=== PATIENT | female | born 1970 | race Caucasian/White ===

== ENCOUNTER 2019-01-13 05:42 | Inpatient (IN) | payer OTHER ==
[~2019-01-13] VITALS: Ht 162.6 cm; Wt 76.6 kg
[2019-01-13] VITALS (27 sets, daily range): BP systolic 105–138; BP diastolic 64–82; PULSE 54–86; RESP 17–27; Ht 162.6 cm; Wt 76.6 kg
--- NOTE | 2019-01-13 07:22 | PREAC ---
Date/Time of Note Date/Time of Note DATE: 01/13/19 TIME: 07:21 Anesthesia Eval and Record Evaluation Time Pre-Procedure Interview DATE: 01/13/19 TIME: 07:21 Age 48 Sex female NPO: 8 hrs Preoperative diagnosis fibroid uterus, menometrorrhagia, pelvic pain Planned procedure PHUC, BSO Past Medical History Past Medical History: Includes Cardio: Dyslipidemia Endo: Diabetes (pre dm) GI: Obesity Surgery & Anesthesia Issues No known issue Meds Anticoagulation: No Beta Nayeli within 24 hr: No Reason Beta Nayeli not given: Pt. not on B-Nayeli Meds reviewed: Yes Allergies Allergies Reviewed: Yes Labs/Studies Labs Reviewed: Reviewed by anesthesiologist test: Negative Studies: ECG (nl) Pre-procedure Exam Airway: Adequate mouth opening, Adequate thyromental dist Mallampati: Mallampati II Teeth: Normal Lung: Normal Heart: Normal ASA Physical Status ASA physical status: 2 Emergency: None Planned Anesthetic General/MAC: ETT Neuraxial: Spinal Planned Pain Management Sub-arachniod narcotics, Parenteral pain med Pre-operative Attestations Prior to commencing anesthesia and surgery, the patient was re-evaluated, there was verification of: *The patient's identity *The results of appropriate recent lab work and preoperative vital signs *The above evaluation not changing prior to induction *Anesthetic plan, risk benefits, alternative and complications discussed with patient/family; questions answered; patient/family understands, accepts and wishes to proceed. Sean Hawk M.D. January 13, 2019 07:22
[2019-01-13] MEDS ORDERED: GLYCOPYRROLATE 0.4 MG INJ ONE (07:27)
[2019-01-13] MEDS ORDERED: DEXAMETHASONE 4 MG/ML 5 ML INJ ONE (07:27)
[2019-01-13] MEDS ORDERED: PROPOFOL 20 ML ONE (07:27)
[2019-01-13] MEDS ORDERED: FENTAnyl 50 MCG/ML VIAL ONE (07:27)
[2019-01-13] MEDS ORDERED: NEOSTIGMINE 3 MG/3 ML SYRINGE ONE (07:27)
[2019-01-13] MEDS ORDERED: ROCURONIUM 50 MG INJ ONE (07:27)
[2019-01-13] MEDS ORDERED: ONDANSETRON 4 MG INJ ONE (07:27)
[2019-01-13] MEDS ORDERED: CEFAZOLIN 1 GM INJ ONE (07:27)
[2019-01-13] MEDS ORDERED: MIDAZOLAM 1 MG/ML 2 ML INJ ONE (07:27)
--- NOTE | 2019-01-13 07:27 | HP ---
Date/Time of Note Date/Time of Note DATE: 01/13/19 TIME: 07:21 Assessment/Plan VTE Prophylaxis SCD applied (from Nsg): Yes Pharmacological prophylaxis: LMWH Lines/Catheters IV Catheter Type (from Nrsg): Peripheral IV Central line still needed: No Assessment/Plan Assessment/Plan Large Fibroid uterus Menometrorrhagia Pelvic pain Plan: Exploratory Laparotomy, AUDELIA-BSO HPI/ROS Admit Date/Time Admit Date/Time January 13, 2019 at 05:42 Hx of Present Illness 48 YO G0 with 18 weeks size fibroid uterus and menorrhagia and pelvic pain and back pain desires to have definitive surgery with hysterectomy. options of removing or retaining the ovaries d/w patient. the risk of future ovarian cancer as well as the difficulty of surgical menopause d/w patient. she desires to re move her ovaries. Surgical risks including infection, bleeding, damage to other organs, blood transfusion d/w patient. Informed consent obtained. ROS Constitutional: no complaints, improved Eyes: no complaints ENT: no complaints Respiratory: no complaints Cardiovascular: no complaints Gastrointestinal: no complaints Genitourinary: no complaints Musculoskeletal: no complaints Skin: no complaints Neurologic: no complaints Endocrine: no complaints Lymphatic: no complaints Psychological: no complaints, nl mood/affect Immunologic: no complaints PMH/Family/Social Past Medical History Medical History: no pertinent history Past Surgical History Past Surgical Hx: other (LSC) Family History Significant Family History: no pertinent family hx Social History Alcohol Use: none Smoking Status: Never smoker Drug Use: none Exam/Review of Systems Exam Gastrointestinal: other (fibroid uterus is palpated below umbilicus) Genitourinary - Female: other (18 week size uterus) MAYCO NIETO MD January 13, 2019 07:26
[2019-01-13] MEDS ORDERED: morphine SULFATE/PF (10 MG/10 ML) INJ ONE (07:28)
[2019-01-13] MEDS ORDERED: FENTAnyl 50 MCG/ML VIAL IV PRN ×3 (07:30)
[2019-01-13] MEDS ORDERED: ONDANSETRON 4 MG INJ IV PRN ×3 (07:30→08:00)
[2019-01-13] MEDS ORDERED: MEPERIDINE 25 MG INJ IV PRN (07:30)
[2019-01-13] MEDS ORDERED: IPRATROPIUM (NEB) 0.5 MG/2.5 ML AMP HHN PRN (07:30)
[2019-01-13] MEDS ORDERED: MIDAZOLAM 1 MG/ML 2 ML INJ IV PRN (07:30)
[2019-01-13] MEDS ORDERED: hydrALAzine 20 MG INJ IV PRN (07:30)
[2019-01-13] MEDS ORDERED: ALBUTEROL 0.083% (NEB) 2.5 MG/3 ML AMP HHN PRN (07:30)
[2019-01-13] MEDS ORDERED: TRIMETHOBENZAMIDE 100 MG/ML VIAL IM PRN ×2 (07:30)
[2019-01-13] MEDS ORDERED: NALBUPHINE HCL (10 MG/1 ML) INJ IV PRN (07:30)
[2019-01-13] MEDS ORDERED: HYDROmorphONE 1 MG/5 ML IV SYRINGE IV PRN ×3 (07:30)
[2019-01-13] MEDS ORDERED: DESFLURANE 15 MIN ONE (07:30)
[2019-01-13] MEDS ORDERED: EPHEDrine 25 MG/5 ML SYG IV PRN (07:30)
[2019-01-13] MEDS ORDERED: LABETALOL HCL 20MG INJ IV PRN (07:30)
[2019-01-13] MEDS ORDERED: OXYCODONE/ACETAMINOPHEN (5/325) TAB PO PRN ×2 (07:30)
[2019-01-13] MEDS ORDERED: DIPHENHYDRAMINE 50 MG INJ IV PRN ×2 (07:30)
[2019-01-13] MEDS ORDERED: HYDROmorphONE 0.5 MG/0.5 ML SYG IV PRN ×2 (07:30)
[2019-01-13] MEDS ORDERED: KETOROLAC 30 MG INJ IV PRN ×2 (07:30→08:00)
[2019-01-13] MEDS ORDERED: NALOXONE (0.4 MG/ML) INJ IV PRN (07:30)
[2019-01-13] MEDS: CEFAZOLIN 1 GM/50 ML (PMX) 50 ML IVPB SCH ×3 (07:50→23:37)
[2019-01-13] MEDS ORDERED: metroNIDAZOLE 500 MG/NS (PMX) 100 ML IVPB SCH (08:00)
[2019-01-13] MEDS ORDERED: morphine 2 MG INJ IV PRN (08:00)
[2019-01-13] MEDS ORDERED: HYDROCODONE/APAP (5/325) TAB PO PRN (08:00)
[2019-01-13] MEDS ORDERED: METOCLOPRAMIDE 10 MG INJ IV PRN (08:00)
--- NOTE | 2019-01-13 09:20 | OPR ---
Date/Time of Note Date/Time of Note DATE: 01/13/19 TIME: 09:13 Operative Report Procedure Date: January 13, 2019 Preoperative Diagnosis Fibroid Uterus pelvic pain menometrorrhagia Postoperative Diagnosis same Operation/Procedure Performed Total Abdominal Hysterectomy Bilateral Salpingectomies Surgeon Mayco Hoffman MD Supervisor Belt And Link Assembly MS Ruth MD Anesthesia Type: general Anesthesiologist: Sean Hawk M.D. Estimated Blood Loss: 250 - 300 ml's Transfusion none Specimen uterus, ovaries, tubes Grafts/Implants none Tubes/Drains Hogan Cath Complications none Pt Condition Post Procedure: stable Disposition: PACU Procedure Description FINDINGS: Large fibroid uterus. endometriosis implants on uterus, normal ovaries and tubes INFORMED CONSENT: Please see my preop H and P for the consent process. The patient desires to remove her ovaries DESCRIPTION OF PROCEDURE: She was taken to the operating room. General anesthesia was induced. She was prepped and draped in the usual sterile fashion. Vaginal prep and abdominal prep was done. Hogan catheter was inserted. She was in the supine position. After she was prepped and draped, surgical time out was done, surgery and patient was identified. Then, we proceeded and made a Pfannenstiel skin incision. Incision was taken down in layers. The fascia was cut, undermined, from the underlying muscle using sharp and blunt dissection. All the bleeders were cauterized. We had to proceed with lysis of adhesions from the omentum to the anterior abdominal wall to get access to our surgical site, at all times protecting the bowel. We took down the adhesions and then an O'Milton-O'Muir retractor was placed, 3 moist laparotomy packs were used to pack the bowel away. Two large clamps were used to grab the uterus. The right round ligament was coagulated twice using the LigaSure and then cut. Same procedure on the contralateral side. Then, we proceeded with developing a bladder flap using a sharp and blunt dissection and bladder was pushed down. A window was developed in the broad ligament on the right side. Ureter was palpated to be away. IP pedicle on the right side was ligated using the LigaSure twice and then cut. There was no bleeding. Same procedure was done on contralateral side. Bladder flap was pushed further down and the right uterine artery pedicle was clamped, cut, suture ligated and the left side was clamped, cut, suture ligated. The bladder flap was pushed further down and the cardinal ligaments were clamped, cut, suture ligated using straight Grace clamps and the uterosacrals were clamped, cut, suture ligated. The vagina was entered using a knife and using Giulia scissors, the specimen was cut and sent to pathology. The vaginal apex on both sides was suture ligated and then interrupted sutures were used to place [id number] sutures to close the cuff. We had to proceed with separation of the right tube from the right ovary, and after we the ovary from the tube, the right fallopian tube was removed using the LigaSure and the left fallopian tube was removed using the LigaSure. We irrigated and then we filled the pelvis using warm water and there was absolutely no evidence of any bleeding from any our pedicles. Each pedicle was evaluated individually. The vaginal cuff was evaluated very carefully and there was no bleeding. At this time, the posterior peritoneum was closed using a 2-0 Vicryl and all laparotomy packs were removed. O'Milton-O'Muir removed. I explored the abdomen, there were no laparotomy packs left inside. The peritoneum was closed using 2-0 Vicryl. The rectus muscles reapproximated using 2-0 Vicryl. Rectus muscles, rectus fascia were evaluated, all bleeders cauterized. Rectus fascia was closed using #1 Vicryl. Subcutaneous tissue was cleaned, irrigated, all bleeders cauterized and closed using 3-0 plain and then the skin closed using Insorb. All counts were correct. The patient tolerated the procedure well. MAYCO HOFFMAN MD January 13, 2019 09:20
--- NOTE | 2019-01-13 09:20 | PAC ---
Date/Time of Note Date/Time of Note DATE: 01/13/19 TIME: 09:20 Post-Anesthesia Notes Post-Anesthesia Note Last documented vital signs hr 78 rr 14 bp 114/65 t 98.6 Activity: WNL Respiratory function: WNL Cardiovascular function: WNL Mental status: Baseline Pain reasonably controlled: Yes Hydration appropriate: Yes Nausea/Vomiting absent: Yes Sean Hawk M.D. January 13, 2019 09:20
[2019-01-13] MEDS: LACTATED RINGER'S 1,000 ML IV SCH ×3 (09:36→23:37)
[2019-01-14] VITALS: BP 105/59; PULSE 82; RESP 18
[2019-01-14] MEDS: LACTATED RINGER'S 1,000 ML IV SCH ×2 (03:30→15:01)
[2019-01-14 04:15] VITALS: BP 100/56; PULSE 80; RESP 18
[2019-01-14] MEDS: ENOXAPARIN 40 MG/0.4 ML SYG SC SCH (08:25)
[2019-01-14 08:30] VITALS: BP 131/72; PULSE 67; RESP 18
[2019-01-14 16:06] VITALS: BP 116/67; PULSE 68; RESP 18
[2019-01-14 19:15] VITALS: BP 141/74; PULSE 77; RESP 18
--- NOTE | 2019-01-14 20:31 | QN ---
Documentation Comment s/p c/s Subjective: c/o nausea no flatus Objective: Afebrile, VSS NAD A&O Abdomen: soft, appropriate tender Incision: no sign of bleeding/infection mild lochia Extremity: 1+ edema bilaterally Assessment: S/p AUDELIA BSO POD #1 Recovering Well Plan: current care MAYCO NIETO MD January 14, 2019 20:31
[2019-01-14] MEDS ORDERED: BISACODYL 10 MG SUPP PR PRN (22:30)
[2019-01-14] MEDS ORDERED: BISACODYL 30 ML ENEMA PR ONE (22:30)
[2019-01-14] MEDS ORDERED: BISACODYL (EC) 5 MG TAB PO PRN (22:30)
[2019-01-14] MEDS ORDERED: DOCUSATE SODIUM 100 MG CAP PO PRN (22:30)
[2019-01-14] MEDS ORDERED: MAGNESIUM HYDROXIDE 30ML CUP PO PRN (22:30)
[2019-01-15 02:05] VITALS: BP 134/70; PULSE 84; RESP 18
[2019-01-15] MEDS: LACTATED RINGER'S 1,000 ML IV SCH (03:08)
[2019-01-15 07:14] VITALS: BP 129/73; PULSE 82; RESP 18
--- NOTE | 2019-01-15 07:45 | DS ---
Date/Time of Note Date/Time of Note DATE: 01/15/19 TIME: 07:43 Discharge Summary Admission/Discharge Info Admit Date/Time January 13, 2019 at 05:42 Discharge Date/Time 01/15/2019 Discharge Diagnosis s/p AUDELIA BSO Patient Condition: Good Procedures AUDELIA BSO Hx of Present Illness 48 YO G0 with 18 weeks size fibroid uterus and menorrhagia and pelvic pain and back pain desires to have definitive surgery with hysterectomy. options of removing or retaining the ovaries d/w patient. the risk of future ovarian cancer as well as the difficulty of surgical menopause d/w patient. she desires to remove her ovaries. Surgical risks including infection, bleeding, damage to other organs, blood transfusion d/w patient. Informed consent obtained. Hospital Course s/p AUDELIA BSO. Post op she is tolerating regular diet, ambulating well, good pain control on oral meds, had BM. VSS, remained afebrile. feels comfortable and desires to go home. Home Meds No Active Prescriptions or Reported Meds Follow-up Plan [address] Hoffman Primary Care Provider Not On Staff Doctor Time spent on discharge: < 30 minutes MAYCO HOFFMAN MD January 15, 2019 07:45
[2019-01-15] MEDS: ENOXAPARIN 40 MG/0.4 ML SYG SC SCH (08:27)
== END 2019-01-15 10:55 | disposition home or self-care (01) | DRG 743 ==
LOC: REC 05:42 → MS1 10:56
PROVIDERS: ADMIT Specialist; ATTEND Specialist
PROC: 0UT20ZZ Resection of Bilateral Ovaries, Open Approach (ICD-10-PCS; 2019-01-13)
PROC: 0UT70ZZ Resection of Bilateral Fallopian Tubes, Open Approach (ICD-10-PCS; 2019-01-13)
PROC: 0UT90ZZ Resection of Uterus, Open Approach (ICD-10-PCS; principal; 2019-01-13 07:30)
DX: D25.9 Leiomyoma of uterus, unspecified (principal); N80.0 Endometriosis of uterus; N92.1 Excessive and frequent menstruation with irregular cycle; E78.5 Hyperlipidemia, unspecified; R10.2 Pelvic and perineal pain; R73.03 Prediabetes; E66.9 Obesity, unspecified; Z68.29 Body mass index [BMI] 29.0-29.9, adult
CPT/HCPCS: 80048; 85025; 88305; J0690; J1100; J1650; J2175; J2250; J2274; J2405; J2710; J3010; J7120

== ENCOUNTER 2019-02-04 19:22 | Emergency (ER) | payer OTHER ==
[~2019-02-04] VITALS: Ht 160 cm; Wt 74.7 kg
[2019-02-04 19:33] VITALS: Ht 160 cm; Wt 74.7 kg
--- NOTE | 2019-02-04 20:22 | ERD ---
ER Documentation Chief Complaint Chief Complaint kris lower leg pain x 1 week HPI 48-year-old female, status post hysterectomy with oophorectomy on 01/13/2019, presents the emergency department, complaining of progressive bilateral lower extremity edema and pain during the last week. The pain is dull, constant, 6/10. She denies palpitations, no shortness of breath, no history of previous episodes. ROS All systems reviewed and are negative except as per history of present illness. Medications Home Meds Active Scripts Ibuprofen* (Motrin*) 400 Mg Tab, 400 MG PO Q6H PRN for PAIN AND OR ELEVATED TEMP, #20 TAB Prov:ASA AVILA MD 02/04/19 Acetaminophen* (Tylenol*) 325 Mg Tablet, 2 TAB PO Q6 PRN for PAIN AND OR ELEVATED TEMP, #20 TAB Prov:ASA AVILA MD 02/04/19 Allergies Allergies: Coded Allergies: No Known Allergy (Unverified , 01/13/19) PMhx/Soc History of Surgery: Yes ("SURGERY TO HAVE A BABY") Anesthesia Reaction: No Hx Neurological Disorder: No Hx Respiratory Disorders: No Hx Cardiac Disorders: No Hx Psychiatric Problems: No Hx Miscellaneous Medical Probl: No Hx Alcohol Use: No Hx Substance Use: No Hx Tobacco Use: No FmHx Family History: No diabetes, No coronary disease Physical Exam Vitals Vital Signs Date Temp Pulse Resp B/P (MAP) Pulse Ox O2 O2 Flow FiO2 Time Delivery Rate 02/04/19 98.0 64 17 128/76 98 Room Air 23:03 (93) 02/04/19 98.1 71 20 130/60 98 19:33 (83) Physical Exam Const: No acute distress Head: Atraumatic Eyes: Normal Conjunctiva ENT: Normal External Ears, Nose and Mouth. Neck: Full range of motion. No meningismus. Resp: Clear to auscultation bilaterally Cardio: Regular rate and rhythm, no murmurs Abd: Soft, non tender, non distended. Normal bowel sounds Skin: No petechiae or rashes Back: No midline or flank tenderness Ext: No cyanosis, or edema Neur: Awake and alert Psych: Normal Mood and Affect Result Diagram: 02/04/19204702/04/192047 Results 24 hrs Laboratory Tests Test 02/04/19 20:48 White Blood Count 10.1 10^3/ul Red Blood Count 3.76 10^6/ul Hemoglobin 12.5 g/dl Hematocrit 37.1 % Mean Corpuscular Volume 98.7 fl Mean Corpuscular Hemoglobin 33.2 pg Mean Corpuscular Hemoglobin Concent 33.7 g/dl Red Cell Distribution Width 11.4 % Platelet Count 224 10^3/UL Mean Platelet Volume 11.4 fl Immature Granulocytes % 0.400 % Neutrophils % 58.5 % Lymphocytes % 31.9 % Monocytes % 7.1 % Eosinophils % 1.7 % Basophils % 0.4 % Nucleated Red Blood Cells % 0.0 /100WBC Immature Granulocytes # 0.040 10^3/ul Neutrophils # 5.9 10^3/ul Lymphocytes # 3.2 10^3/ul Monocytes # 0.7 10^3/ul Eosinophils # 0.2 10^3/ul Basophils # 0.0 10^3/ul Nucleated Red Blood Cells # 0.0 10^3/ul Prothrombin Time 12.4 Sec Prothrombin Time Ratio 1.0 INR International Normalized Ratio 0.91 Activated Partial Thromboplast Time 30.6 Sec Sodium Level 142 mmol/L Potassium Level 4.2 mmol/L Chloride Level 103 mmol/L Carbon Dioxide Level 30 mmol/L Anion Gap 9 Blood Urea Nitrogen 13 mg/dl Creatinine 0.70 mg/dl Est Glomerular Filtrat Rate mL/min > 60 mL/min Glucose Level 101 mg/dl Calcium Level 9.3 mg/dl Total Bilirubin 0.5 mg/dl Direct Bilirubin 0.00 mg/dl Indirect Bilirubin 0.5 mg/dl Aspartate Amino Transf (AST/SGOT) 26 IU/L Alanine Aminotransferase (ALT/SGPT) 24 IU/L Alkaline Phosphatase 94 IU/L Total Protein 7.7 g/dl Albumin 4.3 g/dl Globulin 3.40 g/dl Albumin/Globulin Ratio 1.26 Procedures/MDM Differential diagnosis include but not limited to: Musculoskeletal injury, arthritis, fracture, DVT; low suspicion for acute limb ischemia, septic arthritis, necrotizing fasciitis, compartment syndrome. Neurovascular exam grossly intact. no clinical findings suggestive of acute infectious process, no acute deformity, no edema, no rashes. Pertinent Data: Venous Doppler: Negative for DVT Physical examination and clinical presentation consistent most likely with musculoskeletal leg pain. Results and clinical impression discussed with the patient who agrees with management. The patient is stable to be treated outpatient and will be discharged home with recommendations for ice, rest and NSAIDs 3 times daily for 5 days and close monitoring. The patient was instructed to follow up with the primary care provider in the next 48h. If symptoms persist, worsen or new symptoms develop, then patient should return to the ED immediately. Instructions explained and given to patient with acknowledgment and demonstrated understanding. Disclaimer: Inadvertent spelling and grammatical errors are likely due to EHR/dictation software use and do not reflect on the overall quality of patient care. Also, please note that the electronic time recorded on this note does not necessarily reflect the actual time of the patient encounter. Departure Diagnosis: Primary Impression: Bilateral leg pain Condition: Stable Additional Instructions: Muchas patricio por [facility] para franco servicio. Esperamos que en franco visita a la elise de emergencia franco problema medico haya sido solucionado y que se sienta mucho mejor. Para estar seguros que franco mejoria sigue en proceso, le pedimos el favor de hacer renzo irving de seguimiento medico con franco doctor primario en los proximos 2-4 reich. Lleve con usted estos documentos y las medicinas recetadas. Si parviz sintomas empeoran, NO SE ESPERE, por favor regrese a elise de emergencia INMEDIATAMENTE. En raquel que usted no tenga un mdico de atencin primaria: Llame al mdico o clnica comunitaria de referencia que aparece abajo evi las horas de consultorio para hacer renzo irving para que le vean. CLINICAS: [facility] [phone] [address] [facility] [phone] [address] [facility] [phone] [address] [facility] [phone] [address] [facility] [phone] [facility]. [phone] ASA JOSHUA MD Feb 04, 2019 20:22
[2019-02-04] MEDS ORDERED: IBUP-1561 PO (22:44)
[2019-02-04] MEDS ORDERED: ACET325T33 PO (22:44)
[2019-02-04 23:03] VITALS: BP 128/76; PULSE 64; RESP 17
== END 2019-02-04 23:03 | disposition home or self-care (01) ==
LOC: FTE 19:22
DX: M79.661 Pain in right lower leg (principal); M79.662 Pain in left lower leg
CPT/HCPCS: 80053; 85025; 85610; 85730; 93970; Z7502

== ENCOUNTER 2019-04-04 12:57 | Emergency (ER) | payer OTHER ==
[~2019-04-04] VITALS: Ht 162.6 cm; Wt 65.9 kg
[~2019-04-04 12:57] MED LIST: ACET325T33 PO; ACET500C5 PO; IBUP-1561 PO; MECL-77 PO; ONDA8TAB14 PO
[2019-04-04 13:17] VITALS: BP 120/75; PULSE 75; RESP 18; Ht 162.6 cm; Wt 65.9 kg
[2019-04-04] MEDS ORDERED: SOD CHLORIDE 0.9% 1,000 ML IV STA (14:19)
[2019-04-04] MEDS ORDERED: ONDANSETRON 4 MG INJ IV STA (14:19)
[2019-04-04] MEDS ORDERED: ACETAMINOPHEN 500 MG TAB PO STA (14:19)
--- NOTE | 2019-04-04 16:15 | ERD ---
ER Documentation Chief Complaint Chief Complaint dizziness with nausea x 9 days HPI 48-year-old female presents with nonspecific dizziness and nausea for last 9 days. It is a spinning type dizziness and she has unsteady gait. She also has left-sided headache. She denies vomiting. Denies chest pain or shortness of breath, abdominal pain, deficits. She denies fevers, visual changes. ROS All systems reviewed and are negative except as per history of present illness. Medications Home Meds Active Scripts Meclizine Hcl* (Meclizine Hcl*) 25 Mg Tablet, 25 MG PO Q8H PRN for DIZZINESS, #15 TAB Prov:ZACK ORTIZ MD 04/04/19 Ondansetron (Ondansetron Odt) 8 Mg Tab.rapdis, 8 MG PO Q6H PRN for NAUSEA AND/OR VOMITING, #8 TAB Prov:ZACK ORTIZ MD 04/04/19 Acetaminophen* (Tylophen*) 500 Mg Capsule, 1 CAP PO Q6H PRN for PAIN AND OR ELEVATED TEMP, #15 CAP Prov:ZACK ORTIZ MD 04/04/19 Ibuprofen* (Motrin*) 400 Mg Tab, 400 MG PO Q6H PRN for PAIN AND OR ELEVATED TEMP, #20 TAB Prov:ASA AVILA MD 02/04/19 Acetaminophen* (Tylenol*) 325 Mg Tablet, 2 TAB PO Q6 PRN for PAIN AND OR ELEVATED TEMP, #20 TAB Prov:ASA AVILA MD 02/04/19 Allergies Allergies: Coded Allergies: No Known Allergy (Unverified , 01/13/19) PMhx/Soc History of Surgery: Yes (Csection) Anesthesia Reaction: No Hx Neurological Disorder: No Hx Respiratory Disorders: No Hx Cardiac Disorders: No Hx Psychiatric Problems: No Hx Miscellaneous Medical Probl: No Hx Alcohol Use: No Hx Substance Use: No Hx Tobacco Use: No Smoking Status: Never smoker FmHx Family History: No diabetes, No coronary disease, No other Physical Exam Vitals Vital Signs Date Temp Pulse Resp B/P (MAP) Pulse Ox O2 O2 Flow FiO2 Time Delivery Rate 04/04/19 98.6 75 18 120/75 98 13:17 (90) Physical Exam Const: No acute distress Head: Atraumatic Eyes: Normal Conjunctiva ENT: Normal External Ears, Nose and Mouth. Neck: Full range of motion. No meningismus. Resp: Clear to auscultation bilaterally Cardio: Regular rate and rhythm, no murmurs Abd: Soft, non tender, non distended. Normal bowel sounds Skin: No petechiae or rashes Back: No midline or flank tenderness Ext: No cyanosis, or edema Neur: Awake and alert. Mildly reproducible dizziness bilaterally. Negative cover uncover test. Ambulatory with out deficits. Psych: Normal Mood and Affect Result Diagram: 04/04/19 1435 04/04/19 1435 Results 24 hrs Laboratory Tests Test 04/04/19 14:34 04/04/19 14:35 Urine Test NEGATIVE White Blood Count 9.4 10^3/ul Red Blood Count 4.10 10^6/ul Hemoglobin 13.6 g/dl Hematocrit 40.2 % Mean Corpuscular Volume 98.0 fl Mean Corpuscular Hemoglobin 33.2 pg Mean Corpuscular Hemoglobin Concent 33.8 g/dl Red Cell Distribution Width 11.8 % Platelet Count 193 10^3/UL Mean Platelet Volume 11.8 fl Immature Granulocytes % 0.300 % Neutrophils % 62.7 % Lymphocytes % 28.8 % Monocytes % 7.1 % Eosinophils % 0.7 % Basophils % 0.4 % Nucleated Red Blood Cells % 0.0 /100WBC Immature Granulocytes # 0.030 10^3/ul Neutrophils # 5.9 10^3/ul Lymphocytes # 2.7 10^3/ul Monocytes # 0.7 10^3/ul Eosinophils # 0.1 10^3/ul Basophils # 0.0 10^3/ul Nucleated Red Blood Cells # 0.0 10^3/ul Urine Color YELLOW Urine Clarity CLOUDY Urine pH 7.0 Urine Specific [place] 1.004 Urine Ketones NEGATIVE mg/dL Urine Nitrite NEGATIVE mg/dL Urine Bilirubin NEGATIVE mg/dL Urine Urobilinogen NEGATIVE mg/dL Urine Leukocyte Esterase NEGATIVE Chris/ul Urine Microscopic RBC 0 /HPF Urine Microscopic WBC 0 /HPF Urine Hemoglobin NEGATIVE mg/dL Urine Glucose NEGATIVE mg/dL Urine Total Protein NEGATIVE mg/dl Sodium Level 146 mmol/L Potassium Level 4.3 mmol/L Chloride Level 107 mmol/L Carbon Dioxide Level 29 mmol/L Anion Gap 10 Blood Urea Nitrogen 12 mg/dl Creatinine 0.73 mg/dl Est Glomerular Filtrat Rate mL/min > 60 mL/min Glucose Level 109 mg/dl Calcium Level 9.2 mg/dl Total Bilirubin 0.4 mg/dl Direct Bilirubin 0.00 mg/dl Indirect Bilirubin 0.4 mg/dl Aspartate Amino Transf (AST/SGOT) 38 IU/L Alanine Aminotransferase (ALT/SGPT) 72 IU/L Alkaline Phosphatase 95 IU/L Total Protein 8.1 g/dl Albumin 4.5 g/dl Globulin 3.60 g/dl Albumin/Globulin Ratio 1.25 Current Medications Medications Dose Sig/Shantel Start Time Status Last (Trade) Ordered Route PRN Stop Time Admin Dose Reason Admin Sodium 1,000 ml @ Q1H STAT 04/04/19 DC 04/04/19 Chloride 1,000 mls/hr IV 14:19 04/04/19 14:48 15:18 Ondansetron 4 mg ONCE STAT 04/04/19 DC 04/04/19 HCl (Zofran IV 14:19 04/04/19 14:47 Inj) 14:21 500 mg ONCE STAT 04/04/19 DC 04/04/19 Acetaminophen PO 14:04/04/19 14:50 (Tylenol 14:21 Tab) Procedures/MDM CT brain read as normal by the radiologist. CBC and CMP showed no significant acute abnormalities. Negative urine for infection and hCG negative. Patient is given 1 L normal saline IV, Zofran, Antivert. Patient was well-appearing with a benign abdomen, clear lungs and alert without deficits on serial exam. Patient presents with nonspecific spinning type dizziness mildly reproducible, nausea for last 9 days. She may have nonspecific peripheral vertigo. She has no signs of central vertigo, deficits, signs of meningismus, additional concerning signs or symptoms. We will treat with Zofran, Antivert, Tylenol, recommendations for primary care follow-up and return precautions. The patient was stable with no new complaints during the ER course. Clinically, there is no current evidence to suggest meningitis, sepsis, acute abdomen, pneumonia, stroke, acute coronary syndrome, pulmonary embolism, aortic dissection or any other emergent condition appearing to require further evaluation or hospitalization. Patient counseled regarding my diagnostic impression and care plan. Prior to discharge all questions answered. Pt agrees with treatment plan and understands strict return precautions. Pt is instructed to follow up with primary care provider within 24- 48 hours. Precautionary instructions provided including instructions to return to the ER if not improving or for any worsening or changing symptoms or concerns. Disclaimer: Inadvertent spelling and grammatical errors are likely due to EHR/dictation software use and do not reflect on the overall quality of patient care. Also, please note that the electronic time recorded on this note does not necessarily reflect the actual time of the patient encounter. Departure Diagnosis: Primary Impression: Nausea Additional Impression: Dizziness Condition: Stable Patient Instructions: Nausea, Dizziness, Unk Cause Additional Instructions: Examines normal hoy. Cheque otro vez con franco doctor primario en el proximo reich or regresa para mas o nueva simptomas. descremya y patriciajessica kyle agua. ZACK ORTIZ MD Apr 04, 2019 16:15
== END 2019-04-04 16:35 | disposition home or self-care (01) ==
LOC: FTE 12:57
DX: R42 Dizziness and giddiness (principal); R11.0 Nausea
CPT/HCPCS: 70450; 80053; 81001; 84703; 85025; 96361; 96374; J2405; J7030; Z7502; Z7610